=== PATIENT | male | born 1955 | race Caucasian/White ===

== ENCOUNTER → 2018-02-06 | Outpatient (CLI) | payer SELFPAY | END | disposition home or self-care (01) | LOC: KCIC US 13:54 | DX: R22.41 Localized swelling, mass and lump, right lower limb (principal) | CPT/HCPCS: 76881 ==

== ENCOUNTER → 2018-05-12 | Outpatient (CLI) | payer OTHER ==
[2018-05-12] MEDS: GADOBUTROL 10 MMOL/10 ML VIAL IV (14:20)
== END | disposition home or self-care (01) ==
LOC: KCIC MRI 13:31
DX: R22.41 Localized swelling, mass and lump, right lower limb (principal)
CPT/HCPCS: 73720; A9585

== ENCOUNTER → 2018-08-28 | Outpatient (CLI) | payer OTHER ==
[~2018-08-28] MED LIST: LISI1TAB7 PO; LOVA20TA2 PO
--- NOTE | 2018-08-28 12:45 | KCIC ---
MR of the right shoulder Indication: Right shoulder pain. Progressing since December 2017. Prior injury and surgery in 2015. Technique: Standard multiplanar sequences are obtained. Findings: Artifact: Mild motion degradation Acromioclavicular joint: Mildly degenerative with undersurface osteophytes. Rotator cuff: * Supraspinatus-infraspinatus tendon: Postsurgical changes with screw anchors compatible with reattachment. There is no evidence of significant recurrent tear or rupture. * Subscapularis tendon: Diffusely thin compatible with partial tear. * Muscle bulk: Moderate atrophy. * Subacromial subdeltoid bursa: Small effusion. Fluid: Small glenohumeral effusion. Glenohumeral cartilage: Primary osteoarthritis with marginal and subchondral osteophytes. Labrum: Superior labral blunting Biceps tendon: Poorly seen Bones: No lesion or acute fracture. Soft tissue: No acute findings. Impression: 1. Primary osteoarthritis. 2. Supraspinatus and infraspinatus tendon are intact. Thinning of the subscapularis tendon compatible with partial tear. 3. Superior labral blunting, could be postsurgical versus chronic tear. 4. Poorly seen biceps tendon. Electronically signed by: Sanjiv Castillo MD (08/28/2018 12:41 PM) [id number]
== END | disposition home or self-care (01) ==
LOC: KCIC MRI 09:53
PROVIDERS: ATTEND Family Medicine
DX: M19.011 Primary osteoarthritis, right shoulder (principal); M25.711 Osteophyte, right shoulder; M25.411 Effusion, right shoulder; M62.511 Muscle wasting and atrophy, not elsewhere classified, right shoulder
CPT/HCPCS: 73221

== ENCOUNTER → 2019-12-09 | Outpatient (CLI) | payer MEDICARE, OTHER ==
[~2019-12-09] MED LIST changes: +LISI1TAB20 PO; -LISI1TAB7 PO
--- NOTE | 2019-12-09 14:48 | KCIC ---
MR of the right shoulder HISTORY: Right shoulder pain chronically. Limited motion. Prior rotator cuff repair 2016. TECHNIQUE: Routine multiplanar sequences are obtained. COMPARISON: 08/28/2018. FINDINGS: Mild motion degradation. Acromioclavicular joint is degenerative with small undersurface osteophytes. Postsurgical changes of rotator cuff repair. Supraspinatus and infraspinatus tendon attachment is intact without evidence of a significant recurrent rupture or retraction. Subscapularis tendon is thin and attenuated compatible with partial tearing. This appearance is similar to the previous exam. No significant subdeltoid bursal effusion. Small glenohumeral joint effusion. Glenohumeral joint DJD with chondromalacia and osteophytes is again identified. Superior labrum is small and blunted, similar to prior study. No evidence of acute labral detachment. Biceps tendon not visualized. No acute fracture. No aggressive bone destruction. No acute soft tissue abnormality. Screw also identified within the anterior proximal humeral shaft. IMPRESSION: IMPRESSION: 1. Overall similar appearance as compared with prior study. 2. No significant recurrent supraspinatus or infraspinatus tendon rupture. Similar appearance of partial subscapularis tendon tearing. 3. Superior labral blunting and nonvisualized biceps tendon redemonstrated. Electronically signed by: Sanjiv Castillo MD (12/09/2019 2:45 PM) [id number]
== END | disposition home or self-care (01) ==
LOC: KCIC MRI 13:28
PROVIDERS: ATTEND Orthopaedic Surgery Sports Medicine
DX: M19.011 Primary osteoarthritis, right shoulder (principal); M25.411 Effusion, right shoulder; M94.211 Chondromalacia, right shoulder
CPT/HCPCS: 73221

== ENCOUNTER → 2020-11-15 | Outpatient (CLI) | payer MEDICARE ==
[~2020-11-15] MED LIST changes: +REGADENOSON 0.4 MG/5 ML DISP.SYRIN. IV ONE
--- NOTE | 2020-11-15 17:36 | RAD ---
MR#: [id number] Date of Study: 11/15/2020 Ordering Physician: DOMINGA COOPER, Referring Physician: CHINA DRUMMOND Tech: RT Vi (R) (N) APPROVED REPORT Test Type: Pharmacological Stress Nurse/Tech: Jenny Cagle RN Test Indications: Abnormal EKG, bradycardia Cardiac History: See EMR. Medications: See EMR. Medical History: See EMR. Resting ECG: SR Resting Heart Rate: 61 bpm Resting Blood Pressure: 145/91mmHg Pretest Chest Pain: None Nurse/Tech Notes Lungs CTA, Heart tones regular. Consent: The procedure was explained to the patient in lay terms. Informed consent was witnessed. Isrrael eout was entered into [facility]. History and Stress Test performed by VIVEK Mac[employer]. Details Pharmacologic stress testing was performed using 0.4mg per 5ml of regadenoson given intravenously ove r 7-10 seconds. Stress Symptoms Pt c/o slight chest pressure @ 1/10. The patient then explained he felt it is nervousness, and was ex periencing the pressure prior to the test. POST EXERCISE Reason for Termination: Infusion complete Max HR: 84 bpm Max Blood Pressure: 151/85mmHg Blood Pressure response to exercise: Normal blood pressure response during stress. Heart Rate response to exercise: WNL Arrhythmia: No. ST Change: No. INTERPRETATION Stress EKG Conclusion: The resting EKG showed a sinus rhythm with nonspecific ST-T wave changes. The EKG showed minimal further nonspecific ST-T segment changes. No diagnostic EKG evidence of stress-induced ischemia. Imaging Protocol IMAGE PROTOCOL: Rest Tc-99m/stress Tc-99m 1 day Rest: Stress: Viability: Radiopharm.Tc99m [id number] Sestamibi Dose10.8mCi 33mCi Duration 13min. 13min. Img Date 11/15/2020 11/15/2020 Inj-Img [id number]. 60min. Rest Admin Site:IV - Right AntecubitalAdministrator:RT Dean (R)(N) Stress Admin Site: IV - Right AntecubitalAdministrator: VIVEK Macias STRESS DATA End Diast. Vol.112.0mlLVEDV index BSA60.0ml End Syst. Vol.25.0mlLVESV index BSA13.0ml Myocardial Renp974.0gEject. Esyknqtz65.0% Stress Scores Regional WT0.00Summed WT7.00 Regional WM0.00Summed WM0.00 LV Perfusion The stress scans showed no significant defects. The rest scans showed no significant defects. Nuclear imaging shows no reversible ischemia or infarct. Wall Motion Left ventricular function was normal with no regional wall motion abnormalities and an ejection fract ion of greater than 70%. LV Perf. Quant 17 Seg. SSS0.00 17 Seg. SRS2.00 17 Seg. SDS0.00 Stress Defect Extent (% LAD)0.00Rest Defect Extent (% LAD)1.30Rev. Defect Extent (% LAD)0.00 Stress Defect Extent (% LCX) 0.00Rest Defect Extent (% LCX)0.00Rev. Defect Extent (% LCX)0.00 Stress Defect Extent (% RCA)0.00Rest Defect Extent (% RCA)0.00Rev. Defect Extent (% RCA)0.00 Stress Defect Extent (% ELBERT)0.00Rest Defect Extent (% ELBERT)0.40Rev. Defect Extent (% ELBERT)0.00 Conclusion 1. No diagnostic EKG evidence of stress-induced ischemia. 2. Nuclear imaging shows no reversible ischemia or infarct. 3. Normal left ventricular systolic function with an ejection fraction of greater than 70%. 4. Low risk Lexiscan nuclear stress test. Signed by : Sarkis Julio MD Electronically Approved : 11/15/2020 17:36:20
== END ==
LOC: NM 08:47
PROVIDERS: ATTEND Internal Medicine Cardiovascular Disease
DX: R00.1 Bradycardia, unspecified (principal); R94.31 Abnormal electrocardiogram [ECG] [EKG]
CPT/HCPCS: 78452; 93017; A9500; J2785

== ENCOUNTER → 2021-04-27 | Outpatient (CLI) | payer MEDICARE ==
[~2021-04-27] MED LIST changes: -REGADENOSON 0.4 MG/5 ML DISP.SYRIN. IV ONE
--- NOTE | 2021-04-27 16:25 | RAD ---
EXAM: Lumbar spine, 3 views. HISTORY: Pain. COMPARISON: None. FINDINGS: 3 views of the lumbar spine are obtained. There is levoscoliosis centered at L3. There is g rade 1 anterolisthesis of L4 and L5, measuring 4 mm. There is 3 mm retrolisthesis of L3 on L4. There is multilevel endplate remodeling with osteophytosis and facet arthropathy. There is disc space narro wing predominantly at L3-L4 and L5-S1. No acute fracture is seen. IMPRESSION: 1. Multilevel degenerative change involving the lumbar spine, primarily at L3-L4 and L5-S1. 2. No acute osseous finding. Electronically signed by: Medina Medel MD (04/27/2021 4:23 PM) [id number]
== END ==
LOC: RAD 15:02
PROVIDERS: ATTEND Family Medicine
DX: M47.817 Spondylosis without myelopathy or radiculopathy, lumbosacral region (principal); M43.16 Spondylolisthesis, lumbar region; M25.78 Osteophyte, vertebrae
CPT/HCPCS: 72100

== ENCOUNTER → 2022-04-03 | Outpatient (CLI) | payer MEDICARE ==
[2022-01-19 15:00] VITALS: BP 160/90
[~2022-04-03] MED LIST changes: +AMLO-186 PO; +ATOR20TA58 PO; +DIPH25CA58 PO; +DIVA500T4 PO; +FLUO20CA22 PO; +IBUP-985 PO; -LISI1TAB20 PO; +LISI1TAB39 PO; +MULT-245 PO; +SODI44SP14 NS; +TIZA-75 PO; +TRAZ-118 PO
--- NOTE | 2022-04-04 11:38 | RAD ---
EXAMINATION: US EXT NON VASC RIGHT. HISTORY: 67 years Male right thigh mass COMPARISON: None. FINDINGS: There is a large lobulated the hyperechoic mass with the mild internal vascularity with color Doppler seen in the mid the thigh area which is probably intramuscular based on the ultrasound the appearanc e is a. At this mass has a well defined margins. It measures 5 x 3.6 x 2.3 cm. IMPRESSION: Indeterminate solid mass in the catheter anterior aspect of the right thigh, appears to be intramuscu lar. Further evaluation with MRI or CT scan of the thigh with and without contrast is recommended. Electronically signed by: Jone Ramires MD (04/04/2022 11:36 AM) [id number]
== END ==
LOC: US 15:54
PROVIDERS: ATTEND Surgery
DX: R22.41 Localized swelling, mass and lump, right lower limb (principal)
CPT/HCPCS: 76881